=== PATIENT | male | born 1950 | race African-American/Black ===

== ENCOUNTER 2023-09-30 20:05 | Emergency (ER) | payer MEDICARE ==
[2023-09-30 20:34] LABS: BASOPHILS ABSOLUTE AUTO 0.04 10^3/uL (0.00-0.50); BASOPHILS PERCENT AUTO 0.3 % (0-1); HEMATOCRIT 42.5 % (42.0-52.0); HEMOGLOBIN 14.4 g/dL (14.0-18.0); IMMATURE GRAN ABSOLUTE AUTO 0.02 10^3/uL (0.00-0.49); IMMATURE GRAN PERCENT AUTO 0.2 % (0.0-4.9); LYMPHOCYTES ABSOLUTE AUTO 1.12 10^3/uL (0.60-5.00); LYMPHOCYTES PERCENT AUTO 9.1 % (24-44); MEAN CORPUSCULAR HEMOGLOBIN 31.8 pg (27.0-32.0); MEAN CORPUSCULAR HGB CONC 33.9 g/dL (32.0-36.0); MEAN CORPUSCULAR VOLUME 93.8 fL (83.0-97.0); MONOCYTES ABSOLUTE AUTO 1.28 10^3/uL (0.00-1.50); MONOCYTES PERCENT AUTO 10.4 % (0-10); PLATELET COUNT,PLT 228 10^3/uL (150-400); RED BLOOD CELL COUNT 4.53 x10^6/uL (4.50-6.00); WHITE BLOOD CELL COUNT,WBC 12.3 10^3/uL (4.0-11.0)
[2023-09-30 20:34] LABS: APPEARANCE,URINE CLEAR (CLEAR); BILIRUBIN,URINE NEGATIVE (NEGATIVE); COLOR,URINE YELLOW (YELLOW); GLUCOSE,URINE NEGATIVE (NEGATIVE); KETONES,URINE 15 mg/dL (NEGATIVE); LEUKOCYTE ESTERASE,URINE NEGATIVE (NEGATIVE); NITRITE,URINE NEGATIVE (NEGATIVE); OCCULT BLOOD,URINE MODERATE (NEGATIVE); PROTEIN,URINE 30 mg/dL (NEGATIVE); UROBILINOGEN,URINE 0.2 EU/dL (0.2-1.0)
[2023-09-30 20:41] LABS: BACTERIA,URINE NOT SEEN /HPF (NOT SEEN); EPITHELIAL CELLS,URINE NOT SEEN /HPF (NOT SEEN); MUCUS,URINE OCCASIONAL /HPF (NOT SEEN); WBC,URINE NOT SEEN /HPF (0-5)
[2023-09-30 20:46] LABS: ALBUMIN 3.5 g/dL (3.4-5.0); BILIRUBIN TOTAL 0.5 mg/dL (0.0-1.0); C-REACTIVE PROTEIN 0.55 mg/dL (<=0.50); CALCIUM 8.9 mg/dL (8.4-10.1); CREATININE 1.4 mg/dL (0.7-1.3); EST CRCL DRUG DOSING (CG) 48.52 mL/min; MAGNESIUM 2.2 mg/dL (1.8-2.4); POTASSIUM,K 3.9 mEq/L (3.5-5.0); PROTEIN TOTAL,TP 7.6 g/dL (6.4-8.2)
[2023-09-30] MEDS: Acetaminophen 500 MG Tab PO ONE (20:51)
[2023-09-30 21:08] LABS: CORONAVIRUS COVID-19 NAA NEGATIVE (NEGATIVE); INFLUENZA A NAA NEGATIVE (NEGATIVE); INFLUENZA B NAA NEGATIVE (NEGATIVE)
[2023-09-30] MEDS: Take Home: Amoxicillin/Clavulanate K 875-125 MG Tab, 2 Tab Pack PO ONE (21:24)
== END 2023-09-30 21:34 | disposition home or self-care (01) ==
LOC: CC.ED 20:05
DX: J18.9 Pneumonia, unspecified organism (principal); E86.0 Dehydration; R78.81 Bacteremia; Z79.899 Other long term (current) drug therapy
CPT/HCPCS: 0240U; 36415; 71046; 80053; 81001; 83735; 84484; 85025; 86140; 93005; 99284; A9270-GY